=== PATIENT | female | born 1945 | race Two or more races ===

== ENCOUNTER 2021-05-19 21:55 | Emergency (ER) | payer OTHER ==
[~2021-05-19] VITALS: Ht 160 cm; Wt 61.2 kg
[~2021-05-19 21:55] MED LIST: ADVIL LIQUI-GE200 MG; ASA325 M1 PO; ASA81 MG PO; BENEFIBER; BIAXIN500 MG PO; CLONAZEPAM; COZAAR25 MG PO; INDERAL LA80 MG PO; LACTULOSE; LEVAQUIN500 MG PO; MEDROL4 MG PO; MEDROLPACK PO; MIRALAX12 EA PO; NABUMETONE750 MG; PREVACID 15MG15 MG GT; TOPROL XL25 M1; TOPROL XL50 MG PO; XOPENEX1.25 MG/0. IH; ZYNCOF 20-400120 ML PO
[2021-05-20] MEDS ORDERED: PEPCID AC20 MG PO (15:40)
[2021-05-20] MEDS ORDERED: ATIVAN1 M1 (15:41)
[2021-05-20] MEDS ORDERED: AMLODIPINE-OLM1 EAC1 (15:42)
[2021-05-20] MEDS ORDERED: LOSARTAN POTASS50 MG (15:42)
== END 2021-05-20 17:31 | disposition designated cancer center or children's hospital (05) ==
LOC: ER 21:55
DX: T85.528A Displacement of other gastrointestinal prosthetic devices, implants and grafts, initial encounter (principal); K94.23 Gastrostomy malfunction; R13.19 Other dysphagia; Z86.73 Personal history of transient ischemic attack (TIA), and cerebral infarction without residual deficits; Z74.01 Bed confinement status; Z99.11 Dependence on respirator [ventilator] status; Z99.81 Dependence on supplemental oxygen; Z11.52 Encounter for screening for COVID-19